=== PATIENT | male | born 1990 | race Caucasian/White ===

== ENCOUNTER 2019-06-02 12:46 | Emergency (ER) | payer BC, SELFPAY ==
--- NOTE | ~2019-06-02 | XR_ITS ---
EXAMINATION: XR wrist RT min 3V, XR forearm RT 2V EXAM DATE: 06/02/2019 13:36 INDICATION: Initial encounter following injury, with pain of the right wrist and forearm. TECHNIQUE: Right wrist frontal, frontal with ulnar deviation, oblique and lateral projections obtain ed and reviewed. Right forearm frontal and lateral projections obtained and reviewed. There is no p rior study for comparison. FINDINGS: There are no acute right wrist or forearm fractures or dislocations identified. There is n o subcutaneous gas. The soft tissue is unremarkable. There are no radiopaque foreign bodies. Scaph olunate joint space maintained. IMPRESSION: Right wrist, forearm exam without acute osseous findings. Reviewed, dictated and finalized at location A. ING MACHINE OPERATOR IMPRESSION: Right wrist, forearm exam without acute osseous findings.
[2019-06-02 13:14] VITALS: BP 138/81; PULSE 91; RESP 16; TEMP 37.5; O2SAT 99
--- NOTE | 2019-06-02 13:51 | ED.UPPEXIN ---
HPI - Extremity Injury (Upper) General Chief Complaint: Extremity Injury, Upper Stated Complaint: Fall Injury Right Arm/Wrist Time Seen by Provider: 06/02/19 13:33 Source: patient and RN notes reviewed Mode of arrival: ambulatory Limitations: no limitations History of Present Illness HPI narrative: Patient presents today complaining of an injury to his right wrist, forearm, and elbow. He tripped and fell around 1800 last evening onto hard ground. Pain increases with range of motion of the elbow and wrist. Reports some tingling in the hand. At rest, his pain is a 1/10, which increases to 6/10 with any movement. He has tried no interventions for pain prior to arrival. MD complaint: injury to: right and arm Related Data Home Medications Medication Instructions Recorded Confirmed Coumadin 06/02/19 metoprolol succinate 06/02/19 Allergies Allergy/AdvReac Type Severity Reaction Status Date / Time No Known Allergies Allergy Verified 06/02/19 13:11 Review of Systems Review of Systems: Narrative: CONSTITUTIONAL: Denies body aches, fever, chills, or sweats. EYES: Denies visual changes, redness, or discharge. ENT: Denies rhinorrhea, congestion, sore throat, or otalgia. CARDIOVASCULAR: Denies chest pain, palpitations, or edema. RESPIRATORY: Denies cough or dyspnea. GASTROINTESTINAL: Denies abdominal pain, nausea, vomiting, or diarrhea. GENITOURINARY: Denies dysuria or hematuria. SKIN: Denies rash, itching, or wounds. MUSCULOSKELETAL: Denies back pain, or myalgia. + Right elbow, forearm, wrist pain NEUROLOGIC: Denies headache, numbness, or weakness.+ Tingling to right hand PSYCH: Denies depression or anxiety. PMFSH Comments At time of signature, I have reviewed and agree with nursing past medical, surgical, social and family history unless otherwise noted. Please see nursing chart for further information. There is no relevant family history pertinent to the presenting complaint Exam Narrative: Exam Narrative: GENERAL: Well-appearing, well-nourished, and in no acute distress. HEAD: Normocephalic, atraumatic. EYES: EOMI. No redness or drainage. Conjunctivae normal. ENT: Mucous membranes pink and moist. NECK: Normal AROM. CHEST: No respiratory distress. EXTREMITIES: Right arm: Bony point tenderness to the lateral epicondyle and olecranon process. No bony tenderness to the medial epicondyles, forearm, or wrist. Patient does have diffuse soft tissue tenderness to the elbow, forearm, and wrist. Distal sensation intact. Capillary refill normal. Radial pulse normal. Mild edema to the forearm and hand. No ecchymosis noted. Patient is hesitant to perform AROM of the elbow. SKIN: Warm, dry, no rash. NEURO: No focal deficits. Alert and oriented x3. Gait steady. PSYCH: Normal affect. No signs of depression or anxiety. Course Vital Signs Vital signs: Vital Signs Temperature 99.5 F 06/02/19 13:14 Pulse Rate 91 06/02/19 13:14 Respiratory Rate 16 06/02/19 13:14 Blood Pressure 138/81 06/02/19 13:14 Pulse Oximetry 99 06/02/19 13:14 Temperature 99.5 F 06/02/19 13:14 Pulse Rate 91 06/02/19 13:14 Respiratory Rate 16 06/02/19 13:14 Blood Pressure 138/81 06/02/19 13:14 Pulse Oximetry 99 06/02/19 13:14 Reviewed. Pt has been instructed to follow up with his PCP regarding his elevated blood pressure today. MDM - Extremity Injury (Upper) Differential Diagnosis Differential diagnosis: Likely sprain and strain of wrist, fracture of wrist and other (Forearm fracture, elbow fracture, elbow strain) Imaging Data Radiologist's impression: ITS Impressions Forearm X-Ray 06/02/19 13:37 IMPRESSION: Right wrist, forearm exam without acute osseous findings. Wrist X-Ray 06/02/19 13:37 IMPRESSION: Right wrist, forearm exam without acute osseous findings. Critical Care Time Critical Care Time Critical Care Time: No Discharge Plan Discharge Clinical Impressio
== END 2019-06-02 14:06 | disposition home or self-care (01) ==
PROVIDERS: Emergency Provider Nurse Practitioner
DX: S63.501A Unspecified sprain of right wrist, initial encounter (principal); S66.911A Strain of unspecified muscle, fascia and tendon at wrist and hand level, right hand, initial encounter; W01.0XXA Fall on same level from slipping, tripping and stumbling without subsequent striking against object, initial encounter; Q24.9 Congenital malformation of heart, unspecified
CPT/HCPCS: 73090; 73110; 99203; G0463

== ENCOUNTER 2019-07-30 17:20 | Emergency (ER) | payer BC, SELFPAY ==
--- NOTE | 2019-07-30 17:39 | ED.GENADULT ---
HPI - General Adult General Chief complaint: Eye Problems Stated complaint: Left eye issues Time Seen by Provider: 07/30/19 17:53 Source: patient Mode of arrival: ambulatory Limitations: no limitations History of Present Illness HPI narrative: 29-year-old male patient presents to the [facility] with complaints of left eye pain and redness that started yesterday. Patient states that his contact felt a little uncomfortable in the left eye yesterday and whenever he took it out he states that the pain increased and he noticed a lot of clear discharge, teary and states that he has had some photophobia since then. Denies any fevers or copious amounts of colored discharge. Patient states he has not been putting his contact out in since the incident. Related Data Home Medications Medication Instructions Recorded Confirmed Coumadin 06/02/19 metoprolol succinate 06/02/19 Allergies Allergy/AdvReac Type Severity Reaction Status Date / Time No Known Allergies Allergy Verified 07/30/19 17:45 Review of Systems Review of Systems: Narrative: CONSTITUTIONAL: Denies fever, chills, or sweats. EYES: Denies visual changes, positive left eye redness, and clear discharge. ENT: Denies rhinorrhea, congestion, sore throat, or otalgia. CARDIOVASCULAR: Denies chest pain, palpitations, or edema. RESPIRATORY: Denies cough or dyspnea. GASTROINTESTINAL: Denies abdominal pain, nausea, vomiting, or diarrhea. GENITOURINARY: Denies dysuria or hematuria. SKIN: Denies rash or itching. MUSCULOSKELETAL: Denies back pain, joint pain, or myalgia. NEUROLOGIC: Denies headache, numbness, or weakness. PSYCHIATRIC: Denies anxiety or depression. PMFSH Social History Social History Gender identity (if verbalized by the patient): Male Comments At the time of my signature I agree with nursing past medical history, surgical, social, and family history. There is no relevant family history pertinent to the presenting complaint. Exam Narrative: Exam Narrative: GENERAL: Well-appearing, well-nourished, and in no acute distress. HEAD: Normocephalic, atraumatic. EYES: PERRLA and EOM intact without limitation or complaint of pain, no periorbital soft tissue swelling ,no erythema, warmth or tenderness noted, no obvious deformity. No crusting or swelling.clear tearing and draining.positive mild photophobia. No nystagmus No FB or lesion on lid eversion. Patient does have an obvious corneal abrasion noted to the 3:00 area of the left cornea. No obvious FB or hyphens/hypopyon. injection to sclera. Lids and lashes clear. ENT: Nares clear, no rhinorrhea or epistaxis. Mucous membranes moist. NECK: Supple. No lymphadenopathy CHEST: Clear to auscultation. No respiratory distress. HEART: Regular rate and rhythm. No murmur heard. Normal peripheral pulses. ABDOMEN: Soft, nontender, nondistended, normal active bowel sounds. EXTREMITIES: Normal range of motion. No edema. SKIN: Warm, dry, no rash. NEURO: No focal deficits. Alert and oriented x3. Course Vital Signs Vital signs: Vital Signs Temperature 37.2 C 07/30/19 17:41 Pulse Rate 111 H 07/30/19 17:41 Respiratory Rate 18 07/30/19 17:41 Blood Pressure 138/90 07/30/19 17:41 Pulse Oximetry 99 07/30/19 17:41 Temperature 37.2 C 07/30/19 17:41 Pulse Rate 111 H 07/30/19 17:41 Respiratory Rate 18 07/30/19 17:41 Blood Pressure 138/90 07/30/19 17:41 Pulse Oximetry 99 07/30/19 17:41 Vital signs reviewed. The patient has been informed that they may have pre-hypertension or Hypertension based on a BP reading in the department. I recommend that the patient call the primary care provider listed on their discharge instructions or a physician of their choice this week to arrange follow up for further evaluation of possible pre-hypertension or Hypertension Procedures Other Procedure Procedure 1: Other Procedure: 1 drop of tetracaine was martin
[2019-07-30 17:41] VITALS: BP 138/90; PULSE 111; RESP 18; TEMP 37.2; O2SAT 99
== END 2019-07-30 18:02 | disposition home or self-care (01) ==
PROVIDERS: Emergency Provider Nurse Practitioner Family
DX: S05.02XA Injury of conjunctiva and corneal abrasion without foreign body, left eye, initial encounter (principal); X58.XXXA Exposure to other specified factors, initial encounter; I10 Essential (primary) hypertension; Q24.9 Congenital malformation of heart, unspecified
CPT/HCPCS: 99213; A9270; G0463

== ENCOUNTER 2019-08-07 14:04 | Emergency (ER) | payer BC, SELFPAY ==
--- NOTE | ~2019-08-07 | US_ITS ---
EXAMINATION: US venous doppler LE RT EXAM DATE: 08/07/2019 14:55 INDICATION: Right leg swelling. TECHNIQUE: Multiple grayscale, color flow and Doppler images of the right lower extremity deep venous system were obtained and reviewed. There is no prior study for comparison. FINDINGS: The right common femoral, femoral and profunda veins demonstrate normal color flow, respira tory variation, augmentation and compressibility. Compressibility, color flow confirmed within the r ight popliteal, posterior tibial, peroneal, and greater saphenous veins. IMPRESSION: 1. No right lower extremity deep venous thrombosis. Reviewed, dictated and finalized at location A.
--- NOTE | ~2019-08-07 | CT_ITS ---
EXAMINATION: CTA chest PE protocol EXAM DATE: 08/07/2019 15:13 INDICATION: Shortness of breath. Right ankle swelling. TECHNIQUE: Spiral CTA of the chest (pulmonary arteries) was performed with 100 cc Omnipaque 350 intr avenous contrast injection. Images were acquired during the pulmonary arterial phase. Coronal maxi mum intensity projection 3D-reconstructions were created by the technologist on dedicated workstation . Axial, coronal and sagittal reformatted images were reviewed. The dose-length product (DLP) for t his examination was 916.02 mGy-cm. The exposure was tailored according to patient size (auto mA exp osure control), and iterative reconstruction (ASIR) was used as additional dose reduction technique. There is no prior study for comparison. FINDINGS: Pulmonary arteries are well opacified and without intraluminal filling defects. No thora cic aortic dissection. The lungs are clear. There are no pleural or pericardial effusions. Trach eobronchial tree is patent. There is no mediastinal, hilar or axillary lymphadenopathy. There is no pneumothorax. There is mild cardiomegaly. No evidence of coronary arterial calcification. There are sternotomy wires. There is aortic valve and mitral valve replacement. There is hepatic steatosi s. There is thoracic spondylosis without osteoblastic or osteolytic lesions identified. IMPRESSION: 1. No acute cardiopulmonary findings. 2. Mild cardiomegaly. 3. Hepatic steatosis. Reviewed, dictated and finalized at location A.
[2019-08-07 14:08] VITALS: BP 134/84; PULSE 95; RESP 18; TEMP 36.9; O2SAT 98
[2019-08-07 14:45] LABS: Basophils Absolute Auto 0.1 K/mm3 (0.0-0.1); Basophils Percent Auto 1.2 % (0.2-1.2); Eosinophils Absolute Auto 0.2 K/mm3 (0-0.3); Eosinophils Percent Auto 2.8 % (0-4.4); Hematocrit 43.5 % (42.0-52.0); Hemoglobin 14.3 g/dL (14.0-18.0); Immature Granulocyte Absolute 0.01 K/mm3 (0.00-0.031); Immature Granulocyte Percent A 0.2 % (0-0.5); Lymphocytes Percent Auto 15.6 % (18.3-44.2); Mean Corpuscular HGB Conc 32.9 g/dl (32-36); Mean Corpuscular Hemoglobin 27.5 pg (26-34); Mean Corpuscular Volume 83.7 fl (80-100); Mean Platelet Volume 10.3 fl (7.4-10.4); Monocytes Absolute Auto 0.6 K/mm3 (0.1-0.6); Monocytes Percent Auto 9.9 % (2.6-8.5); Neutrophils Absolute Auto 4.1 K/mm3 (1.3-6.7); Neutrophils Percent Auto 70.3 % (45.5-73.1); Platelet Count Result 258 k/mm3 (150-375); White Blood Count 5.8 K/mm3 (4.5-10.0)
--- NOTE | 2019-08-07 14:55 | ED.GENADULT ---
HPI - General Adult General Chief complaint: Extremity Injury, Lower Stated complaint: foot swelling/etoh Time Seen by Provider: 08/07/19 14:08 Source: patient Mode of arrival: ambulatory Limitations: no limitations History of Present Illness HPI narrative: Patient is a 29-year-old male who presents with atraumatic right ankle swelling noticed today patient denies injury or trauma patient notes that he over the last 3 to 4 days has been on alcohol and cocaine binge. Patient notes over the last 3 days he has not taken his warfarin which he takes for prosthetic valves patient denies any injury or trauma pain. Patient on arrival resting comfortably in the room present for private vehicle. Related Data Home Medications Medication Instructions Recorded Confirmed Coumadin 06/02/19 metoprolol succinate 06/02/19 Allergies Allergy/AdvReac Type Severity Reaction Status Date / Time No Known Allergies Allergy Verified 08/07/19 14:14 Review of Systems Review of Systems: All systems reviewed & are unremarkable except as noted in HPI and below PMFSH Past Medical History Medical History (Updated 08/07/19 @ 16:09 by Yonas Mckeon PA-C) Warfarin anticoagulation Surgical History Surgical History (Updated 08/07/19 @ 14:57 by Yonas Mckeon PA-C) H/O prosthetic heart valve Social History Social History (Updated 08/07/19 @ 14:58 by Yonas Mckeon PA-C) Smoking status: Never smoker Alcohol intake: current Substance use type: crack/cocaine Gender identity (if verbalized by the patient): Male Exam Narrative: Exam Narrative: GENERAL: Well-appearing, well-nourished, and in no acute distress. HEAD: Normocephalic, atraumatic. EYES: PERRLA and EOMI. ENT: Nares clear, no rhinorrhea or epistaxis. Mucous membranes moist. Oropharynx without tonsillar hypertrophy exudate or other lesions. NECK: Supple. No adenopathy or masses. CHEST: Clear to auscultation. No respiratory distress. No wheezes rales or rhonchi HEART: Regular rate and rhythm. No murmur heard. Normal peripheral pulses. ABDOMEN: Soft, nontender, nondistended EXTREMITIES: Normal range of motion. 1+ edema of the dorsal surface of the right foot with slight edema around the right ankle. No calf tenderness SKIN: Warm, dry, no rash. NEURO: No focal deficits. Alert and oriented x3. Neurovascularly intact PSYCH: Normal mood and affect. Course Course Emergency Course: Patient in the room in no distress at this time aware of case findings treatment plan and diagnosis will be discharged home no high risk changes in the imaging or blood work patient advised to continue his medications and discontinue the alcohol and illicit drug use patient hemodynamically stable. Vital Signs Vital signs: Vital Signs Temperature 98.5 F 08/07/19 14:08 Pulse Rate 95 08/07/19 14:08 Respiratory Rate 18 08/07/19 14:08 Blood Pressure 134/84 08/07/19 14:08 Pulse Oximetry 98 08/07/19 14:08 Temperature 97.6 F 08/07/19 15:32 Pulse Rate 87 08/07/19 15:32 Respiratory Rate 10 L 08/07/19 15:32 Blood Pressure 141/94 H 08/07/19 15:32 Pulse Oximetry 99 08/07/19 15:32 Medical Decision Making MDM Narrative Medical decision making narrative: Patients injury or pain is consistent with musculoskeletal etiology. No signs of neurological or vascular compromise on exam. Compartments and tisues are soft without signs of compartment syndrome. Pain is felt appropriate for further evaluation on an outpatient basis.. Patient with likely dependent edema may be ankle sprain patient without blood clot or pulmonary embolus seen will be discharged home hemodynamically stable advised to follow with primary care and cardiology Vital Signs Vital Signs: Vital Signs Temperature 98.5 F 08/07/19 14:08 Pulse Rate 95 08/07/19 14:08 Respiratory Rate 18 08/07/19 14:08 Blood Pressure 134/84 08/07/19 14:08 Pulse Oximetry 98 08/07/19 14:08 Temper
[2019-08-07 14:56] LABS: INR 1.4; Prothrombin Time 17.1 Seconds (11.1-14.7)
[2019-08-07 15:01] LABS: Alanine Aminotransferase 76 U/L (4-50); Albumin Level 4.3 g/dL (3.5-5.1); Alkaline Phosphatase 95 U/L (38-126); Aspartate Amino Transferase 69 U/L (17-59); Bilirubin,Total 1.1 mg/dL (0.2-1.3); Blood Urea Nitrogen 11 mg/dL (9-20); Calcium 8.8 mg/dL (8.4-10.2); Carbon Dioxide 30 mmol/L (22-30); Chloride 99 mmol/L (98-107); Estimated Glomerular Filt Rate > 60; Glucose 101 mg/dL (75-110); Potassium 3.8 mmol/L (3.4-5.0); Sodium 138 mmol/L (137-145)
[2019-08-07 15:12] LABS: NT Pro B Type Natriuretic Pept 69 PG/ML (5-100); Troponin I 0.022 ng/mL (0.000-0.034)
[2019-08-07 15:32] VITALS: BP 141/94; PULSE 87; RESP 10; TEMP 36.4; O2SAT 99
[2019-08-07] MEDS: SODIUM CHLORIDE 0.9% IV 1,000 ML 999 ML IV CONT (15:35)
[2019-08-07 16:26] VITALS: BP 148/91; PULSE 94; RESP 12; TEMP 36.4; O2SAT 100
== END 2019-08-07 16:41 | disposition home or self-care (01) ==
PROVIDERS: Emergency Medicine Emergency Medical Services; Emergency Provider Emergency Medicine
DX: M25.471 Effusion, right ankle (principal); Z79.01 Long term (current) use of anticoagulants; Z95.2 Presence of prosthetic heart valve; K76.0 Fatty (change of) liver, not elsewhere classified; I51.7 Cardiomegaly; R60.0 Localized edema
CPT/HCPCS: 36415; 71275; 80053; 83880; 84484; 85025; 85610; 93971; 96360; 99284; J7030; Q9967